=== PATIENT | male | born 1980 | race American Indian/Alaskan Native ===

== ENCOUNTER 2021-10-04 17:22 | Emergency (ER) | payer SELFPAY ==
[2021-10-04 17:56] VITALS: BP 133/86
== END 2021-10-05 01:43 | disposition left against medical advice (07) ==
LOC: ED 17:22
DX: R42 Dizziness and giddiness (principal); R51.9 Headache, unspecified; M25.561 Pain in right knee; M25.562 Pain in left knee; R10.9 Unspecified abdominal pain; Z53.21 Procedure and treatment not carried out due to patient leaving prior to being seen by health care provider